=== PATIENT | female | born 1950 | race Caucasian/White ===

== ENCOUNTER → 2018-01-10 | Outpatient (CLI) | payer MEDICARE ==
[~2018-01-10] MED LIST: ADVAIR 500/501 EA; CALCIUM 500+D1 EACH PO; GUAIFENESIN400 MG PO; LEVAQUIN750 MG; METOPROLOL TART25 MG PO; MONTELUKAST SOD10 MG PO; MULTI-VITAMIN1 EACH PO; NORCO 7.5-3251 EACH PO; PANTOPRAZOLE SO40 MG; PANTOPRAZOLE SO40 MG PO; PROLIA INJ; SINGULAIR4 M1; SYMBICORT IH; TRIAMCINOLONE PO; VENTOLIN HFA18 GM; VENTOLIN HFA18 GM INH; VITAMIN D35000 UNIT PO; [UNRECOGNIZED DRUG - OTHER]
== END ==
LOC: RAD 12:42
PROVIDERS: ATTEND Internal Medicine
DX: R60.0 Localized edema (principal)
CPT/HCPCS: 93971

== ENCOUNTER → 2018-11-01 | Outpatient (CLI) | payer MEDICARE, OTHER ==
--- NOTE | 2018-11-01 10:31 | Diagnostic Imaging Report ---
PROCEDURE:BIOPSY THYROID FNA COMPARISON:None. INDICATIONS:THYROID NODULES FINDINGS: Written and verbal consent were obtained. Patient was placed supine. Preliminary ultrasound identified right midpole nodule and isthmus nodule. A safe entry route was identified and the overlying skin was prepped and draped in usual sterile fashion. Lidocaine 1% was used for local pain control. A total of 3 FNA passes in the isthmus nodule was accomplished with 25 gauge needles. A total of 3 FNA passes in the right midpole nodule was accomplished with 25 gauge needles. Specimens were evaluated and deemed adequate by the Pathologist who was in attendance. The patient tolerated the procedure well and there were no immediate post-procedural complications. CONCLUSION: Successful ultrasound-guided biopsy of 2 thyroid nodules. Ovi Burk D.O. Dictated by: Ovi Burk D.O. on 11/01/2018 at 10:42 Electronically approved by: Ovi Burk D.O. on 11/01/2018 at 10:42
== END ==
LOC: US 10-25 08:31
PROVIDERS: ATTEND Otolaryngology
DX: E04.2 Nontoxic multinodular goiter (principal)
CPT/HCPCS: 10022; 76942; 88112; 88172; 88173; 88305

== ENCOUNTER 2020-09-06 10:43 | Outpatient (RCR) | payer MEDICARE ==
[2020-08-23 10:44] LABS: BASOPHILS # (AUTO) 0.1 (0.0-0.1); BASOPHILS % 0.6 % (0.0-1.0); EOSINOPHILS # (AUTO) 0.1 (0.0-0.4); EOSINOPHILS % 0.7 % (0.0-6.0); HEMATOCRIT 38.1 % (34.2-44.1); HEMOGLOBIN 12.2 g/dL (12.0-16.0); LYMPHOCYTES # (AUTO) 1.6 (1.0-3.2); LYMPHOCYTES % 19.6 % (18.0-39.1); MEAN CORPUSCULAR HEMOGLOBIN 30.7 pg (28-32); MONOCYTES # (AUTO) 0.6 (0.2-0.8); MONOCYTES % 7.7 % (4.4-11.3); NEUTROPHILS # (AUTO) 5.7 (2.1-6.9); PLATELET COUNT 459 x10e3/uL (140-360); RED BLOOD COUNT 3.97 x10e6/uL (3.6-5.1); RED CELL DISTRIBUTION WIDTH 14.1 % (11.7-14.4)
[2020-08-23 11:06] LABS: ALANINE AMINOTRANSFERASE 19 IU/L (0-55); ALBUMIN 3.3 g/dL (3.5-5.0); ALKALINE PHOSPHATASE 78 IU/L (40-150); ANION GAP 13.2 mmol/L (8-16); BLOOD UREA NITROGEN 17 mg/dL (7-26); BUN/CREATININE RATIO 20 (6-25); CARBON DIOXIDE 27 mmol/L (22-29); CHLORIDE 104 mmol/L (98-107); CREATININE, SERUM 0.84 mg/dL (0.57-1.11); EST GLOMERULAR FILTRATION RATE > 60 ML/MIN (60-); GLUCOSE 108 mg/dL (74-118); POTASSIUM 4.2 mmol/L (3.5-5.1); SODIUM 140 mmol/L (136-145)
[~2020-09-06 10:43] MED LIST changes: +LIDOCAINE 1% W/EPINEPHRINE 20 ML VIAL ONE; +LIDOCAINE VISC 2% SOLN 15 ML UDC ONE
[2020-09-06] MEDS ORDERED: LIDOCAINE/PRILOCAINE 2.5-2.5% KIT ONE (12:58)
== END 2020-09-18 ==
LOC: WCC 10:43
PROVIDERS: ATTEND Plastic Surgery
DX: S81.802A Unspecified open wound, left lower leg, initial encounter (principal); D89.89 Other specified disorders involving the immune mechanism, not elsewhere classified; J44.9 Chronic obstructive pulmonary disease, unspecified; W01.198A Fall on same level from slipping, tripping and stumbling with subsequent striking against other object, initial encounter
CPT/HCPCS: 36415; 80053; 84134; 85025

== ENCOUNTER → 2020-10-07 | Day surgery (SDC) | payer MEDICARE, OTHER ==
[2020-10-04 15:02] LABS: BASOPHILS # (AUTO) 0.1 (0.0-0.1); BASOPHILS % 0.8 % (0.0-1.0); EOSINOPHILS # (AUTO) 0.2 (0.0-0.4); EOSINOPHILS % 2.7 % (0.0-6.0); HEMOGLOBIN 12.2 g/dL (12.0-16.0); LYMPHOCYTES # (AUTO) 2.8 (1.0-3.2); LYMPHOCYTES % 31.1 % (18.0-39.1); MEAN CORPUSCULAR HEMOGLOBIN 31.2 pg (28-32); MEAN CORPUSCULAR HGB CONC 32.1 g/dL (31-35); MEAN CORPUSCULAR VOLUME 97.2 fL (81-99); MONOCYTES # (AUTO) 0.9 (0.2-0.8); MONOCYTES % 10.1 % (4.4-11.3); NEUTROPHILS # (AUTO) 4.9 (2.1-6.9); NEUTROPHILS % 55.1 % (38.7-80.0); PLATELET COUNT 285 x10e3/uL (140-360); RED BLOOD COUNT 3.91 x10e6/uL (3.6-5.1); RED CELL DISTRIBUTION WIDTH 14.6 % (11.7-14.4)
[2020-10-04 15:40] LABS: ANION GAP 10.9 mmol/L (8-16); BLOOD UREA NITROGEN 16 mg/dL (7-26); BUN/CREATININE RATIO 19 (6-25); CALCIUM 9.1 mg/dL (8.4-10.2); CARBON DIOXIDE 32 mmol/L (22-29); CHLORIDE 103 mmol/L (98-107); CREATININE, SERUM 0.83 mg/dL (0.57-1.11); EST GLOMERULAR FILTRATION RATE > 60 ML/MIN (60-); GLUCOSE 93 mg/dL (74-118); POTASSIUM 3.9 mmol/L (3.5-5.1); SODIUM 142 mmol/L (136-145)
[~2020-10-07] MED LIST changes: +CITALOPRAM HBR20 MG PO; +CLINDAMYCIN 600MG / 50ML 50 ML IV ONE; +DEXAMETHASONE SOD PHOS INJ 4 MG/ML VIAL ONE; +FUROSEMIDE40 MG PO; +KETOROLAC TROMETHAMINE 30 MG/ML VIAL ONE; +LIDOCAINE HCL 2% LOCAL INJ 5 ML SDV VIAL INJ ONE; -LIDOCAINE VISC 2% SOLN 15 ML UDC ONE; +MINERAL OIL STERILE 10ML VIAL ONE; +MUPIROCIN 2% OINT 22 GM TUBE ONE; +ONDANSETRON HCL INJ 2MG/ML 2ML 2 MG/ML VIAL ONE; +PROPOFOL IV EMULSION 10 MG/ML 20 ML VIAL ONE; +SEVOFLURANE INHAL SOLN 250 ML PEN BTL ONE
[2020-10-07 09:00] VITALS: BP 137/69
== END | disposition home or self-care (01) ==
LOC: OR 05:24
PROVIDERS: ATTEND Plastic Surgery
DX: S81.802A Unspecified open wound, left lower leg, initial encounter (principal); M06.9 Rheumatoid arthritis, unspecified; M54.5 Low back pain; J44.9 Chronic obstructive pulmonary disease, unspecified; I49.9 Cardiac arrhythmia, unspecified; R00.2 Palpitations; K21.9 Gastro-esophageal reflux disease without esophagitis; K44.9 Diaphragmatic hernia without obstruction or gangrene; M27.8 Other specified diseases of jaws; X58.XXXA Exposure to other specified factors, initial encounter; Z88.0 Allergy status to penicillin; Z01.810 Encounter for preprocedural cardiovascular examination; Z01.812 Encounter for preprocedural laboratory examination; Z01.818 Encounter for other preprocedural examination; Z20.828 Contact with and (suspected) exposure to other viral communicable diseases; Z87.01 Personal history of pneumonia (recurrent)
CPT/HCPCS: 15100; 15101 ×2; 36415; 71046; 80048; 85025; 93005; 97605; J1100; J1885; J2001; J2405; J2704; U0002

== ENCOUNTER → 2020-10-18 | Outpatient (RCR) | payer MEDICARE, OTHER ==
[~2020-10-18] MED LIST changes: -CLINDAMYCIN 600MG / 50ML 50 ML IV ONE; -DEXAMETHASONE SOD PHOS INJ 4 MG/ML VIAL ONE; -KETOROLAC TROMETHAMINE 30 MG/ML VIAL ONE; -LIDOCAINE 1% W/EPINEPHRINE 20 ML VIAL ONE; -LIDOCAINE HCL 2% LOCAL INJ 5 ML SDV VIAL INJ ONE; +LIDOCAINE VISC 2% SOLN 15 ML UDC ONE; +LIDOCAINE/PRILOCAINE 2.5-2.5% KIT ONE; -MINERAL OIL STERILE 10ML VIAL ONE; +MINERAL OIL/PETROLAT/GLYCERI 2OZ CRM ONE; -ONDANSETRON HCL INJ 2MG/ML 2ML 2 MG/ML VIAL ONE; -PROPOFOL IV EMULSION 10 MG/ML 20 ML VIAL ONE; -SEVOFLURANE INHAL SOLN 250 ML PEN BTL ONE
== END ==
LOC: WCC 09-20 13:10
PROVIDERS: ATTEND Plastic Surgery
DX: S81.802A Unspecified open wound, left lower leg, initial encounter (principal); D89.89 Other specified disorders involving the immune mechanism, not elsewhere classified; J44.9 Chronic obstructive pulmonary disease, unspecified; W01.198A Fall on same level from slipping, tripping and stumbling with subsequent striking against other object, initial encounter

== ENCOUNTER 2020-10-25 09:25 | Outpatient (RCR) | payer MEDICARE, OTHER ==
[~2020-10-25 09:25] MED LIST changes: -LIDOCAINE VISC 2% SOLN 15 ML UDC ONE; -LIDOCAINE/PRILOCAINE 2.5-2.5% KIT ONE; -MINERAL OIL/PETROLAT/GLYCERI 2OZ CRM ONE; -MUPIROCIN 2% OINT 22 GM TUBE ONE
[2020-10-25] MEDS ORDERED: MINERAL OIL/PETROLAT/GLYCERI 6OZ BTL ONE (12:52)
== END 2020-11-18 ==
LOC: WCC 09:25
PROVIDERS: ATTEND Plastic Surgery
DX: T81.89XA Other complications of procedures, not elsewhere classified, initial encounter (principal); T86.828 Other complications of skin graft (allograft) (autograft); Y83.9 Surgical procedure, unspecified as the cause of abnormal reaction of the patient, or of later complication, without mention of misadventure at the time of the procedure; J44.9 Chronic obstructive pulmonary disease, unspecified; D89.89 Other specified disorders involving the immune mechanism, not elsewhere classified; W01.198A Fall on same level from slipping, tripping and stumbling with subsequent striking against other object, initial encounter